=== PATIENT | female | born 1965 | race Caucasian/White ===

== ENCOUNTER → 2017-07-16 | Outpatient (CLI) | payer OTHER ==
--- NOTE | 2017-07-19 13:33 | MAMMOGRAPHY REPORT ---
BILATERAL DIGITAL SCREENING MAMMOGRAM TOMOSYNTHESIS WITH CAD: 07/16/2017 CLINICAL HISTORY: Routine screening. TECHNIQUE: Breast tomosynthesis in addition to standard 2D mammography was performed. Current study was also evaluated with a Computer Aided Detection (CAD) system. COMPARISON: Comparison is made to exams dated: 07/10/2016 mammogram, 07/05/2015 mammogram, 06/29/2014 ma mmogram, 06/27/2013 mammogram, 06/16/2012 mammogram, and 06/16/2011 mammogram - [facility]. BREAST COMPOSITION: The tissue of both breasts is heterogeneously dense, which may obscure small mas ses. FINDINGS: There are calcifications within the left upper outer quadrant which appear more prominent compared to prior exams. The calcifications demonstrate possible layering on the MLO view and may re present milk of calcium, however, spot magnification views are recommended for further evaluation. T here are adjacent nodular asymmetries in the right superior posterior breast with questionable associ ated architectural distortion seen on the MLO view only, which may represent normal overlapping fibro glandular tissue although spot compression tomosynthesis views and possible breast ultrasound are rec ommended for further evaluation. The remainder of both breasts are stable compared to prior exams, without suspicious masses, calcific ations, or areas of architectural distortion noted. Other scattered bilateral benign appearing calci fications are stable. IMPRESSION: ACR BI-RADS CATEGORY 0: INCOMPLETE EVALUATION: NEED ADDITIONAL IMAGING EVALUATION Right breast asymmetries and left breast calcifications, for which additional imaging evaluation is r ecommended. The patient will be called to schedule an appointment. Approximately 10% of breast cancers are not detected with mammography. A negative mammographic report should not delay biopsy if a clinically suggestive mass is present. Nelly Yang M.D. ah/:07/16/2017 17:05:13 Assistant Scientist: Mari HANEY(R)(M), [facility] letter sent: Addl Imaging 0 BI-RADS Code: ACR BI-RADS Category 0: Incomplete Evaluation: Need Additional Imaging Evaluation
== END | disposition home or self-care (01) ==
LOC: C.MAMM 08:25
PROVIDERS: ATTEND Obstetrics & Gynecology
DX: Z12.31 Encounter for screening mammogram for malignant neoplasm of breast (principal)

== ENCOUNTER → 2017-07-23 | Outpatient (CLI) | payer OTHER ==
--- NOTE | 2017-07-23 14:55 | MAMMOGRAPHY REPORT ---
BILATERAL DIGITAL DIAGNOSTIC MAMMOGRAM TOMOSYNTHESIS: 07/23/2017 CLINICAL HISTORY: Callback from screening mammogram for right breast asymmetry and left breast calcif ications. TECHNIQUE: Breast tomosynthesis in addition to standard 2D mammography was performed. Spot magnific ation left CC and ML views and spot compression right MLO and full right ML 2-D and tomosynthesis romy ges were obtained. COMPARISON: Comparison is made to exams dated: 07/16/2017 mammogram, 07/10/2016 mammogram, 07/05/2015 m ammogram, 06/29/2014 mammogram, 06/27/2013 mammogram, and 06/16/2012 mammogram - [facility]. BREAST COMPOSITION: The tissue of both breasts is heterogeneously dense, which may obscure small mas ses. FINDINGS: The previously described nodular asymmetries with questionable associated architectural di stortion seen within the right superior breast on the MLO view only efface to a baseline appearance o n the additional views, without a suspicious mass or architectural distortion noted in this region on the additional tomosynthesis images. The tissue in this region has the appearance of normal fibrogl andular tissue on the additional images. Therefore, findings are benign and compatible with normal o verlapping fibroglandular tissue. Spot magnification views of the left breast demonstrate loosely grouped faint calcifications in the l eft upper outer quadrant, which are punctate and faint on the cc view, and the majority of the calcif ications demonstrate layering on the lateral view. Given that the calcifications layer on the latera l view, they are consistent with benign milk of calcium. IMPRESSION: ACR BI-RADS CATEGORY 2: BENIGN 1. The right breast asymmetries efface on the additional views, and are benign and compatible with n ormal overlapping fibroglandular tissue. 2. Loosely grouped calcifications in the left upper outer quadrant are benign and compatible with mi lk of calcium. There is no mammographic evidence of malignancy. A 1 year screening mammogram is recommended. [facility] has been verbally notified of the results. Approximately 10% of breast cancers are not detected with mammography. A negative mammographic report should not delay biopsy if a clinically suggestive mass is present. Nelly Yang M.D. /:07/23/2017 11:43:53 [employer]: Linda HANEY(Jaison)(M), [facility] letter sent: Normal 10/26 BI-RADS Code: ACR BI-RADS Category 2: Benign
== END | disposition home or self-care (01) ==
LOC: C.MAMM 11:16
PROVIDERS: ATTEND Obstetrics & Gynecology
DX: N64.89 Other specified disorders of breast (principal); R92.1 Mammographic calcification found on diagnostic imaging of breast